=== PATIENT | male | born 1995 | race Caucasian/White ===

== ENCOUNTER 2016-10-26 18:52 | Emergency (ER) | payer BC, OTHER ==
[2016-10-26] MEDS ORDERED: methylPREDNISolone INJ 125 MG/2 ML VIAL (J2930) As Ordered ONE (19:11)
[2016-10-26] MEDS ORDERED: IPRATROPIUM 0.5MG/ALBUTEROL 2.5MG INH SOL UD 3ML (DUONEB)(J7620) As Ordered ONE (19:12)
[2016-10-26] MEDS ORDERED: MAGNESIUM SULFATE 1 GM/100 ML D5W BAG (10MG/ML) (J3475) As Ordered ONE (20:28)
[2016-10-26] MEDS ORDERED: ALBUTEROL 90 MCG/ACT 8GM HFA INHALER As Ordered ONE (21:44)
--- NOTE | 2016-10-26 21:51 | EDDOCDS ---
Nurse's Notes [facility] Name: Patrick Thacker Age: 20 yrs Sex: Male : 1995 Arrival Date: 10/26/2016 Time: 18:52 Bed I7 Private MD: Joel Easley W Diagnosis: Wheezing;Shortness of breath;Acute bronchospasm Presentation: 10/26 18:57 Presenting complaint: Patient states: woke this AM with nasal congestion and difficulty kr3 breathing. Adult Sepsis Screening: The patient does not have new or worsening altered mentation. Patient's respiratory rate is less than 22. Systolic blood pressure is greater than 100. Patient has a qSOFA score of 0- Negative Sepsis Screen. Suicide/Homicide risk assessment- the patient denies having any suicidal and/or homicidal ideations and does not present with any other emotional, behavioral or mental health complaints. Status: Patient is not a environmental services worker or dependent. Transition of care: patient was not received from another setting of care. 18:57 Acuity: GORDY Level 3 kr3 18:57 Method Of Arrival: Wheelchair kr3 Triage Assessment: 18:58 General: Appears comfortable, Behavior is cooperative. Pain: Denies pain. HIV screening kr3 NA for this visit Offered previously. Neurological: Level of Consciousness is awake, alert. EENT: Reports nasal congestion. Respiratory: Onset: The symptoms/episode began/occurred this morning, Airway is patent Respiratory effort is even, labored, Reports shortness of breath at rest on exertion cough that is non-productive. Derm: Skin is flushed. Historical: - Allergies: SULFA (SULFONAMIDES); - Home Meds: 1. Albuterol Inhl as needed (Last dose: 10/26/2016 17:30) 2. robitussin DM as needed (Last dose: 10/26/2016) - PMHx: none; - PSHx: none; - Social history: Smoking status: Patient uses tobacco products, current every day smoker. No barriers to communication noted, The patient speaks fluent Greek, Speaks appropriately for age. - Family history: No immediate family members are acutely ill. - : The pt / caregiver states he / she is not on anticoagulants. Home medication list is obtained from the patient. - Exposure Risk Screening:: None identified. Screenin:48 Screening information is obtained from the patient. Fall risk: No risks identified. ld5 Assistance ADL's: requires no assistance with activities of daily living. Abuse/DV Screen: The patient / caregiver reports he/she is: not in a situation that causes fear, pain or injury. Nutritional screening: No deficits noted. Advance Directives: Currently, there is no health care proxy. home support is adequate. Assessment: 19:09 Adult Sepsis Screening: The patient does not have new or worsening altered mentation. dsf Patient has a respiratory rate of greater than or equal to 22 (1 point). Systolic blood pressure is greater than 100. Patient has a qSOFA score of 1- Negative Sepsis Screen. General: Appears in no apparent distress, Behavior is appropriate for age. Neurological: Level of Consciousness is awake, alert. Cardiovascular: Capillary refill < 3 seconds Heart tones S1 S2 present. Respiratory: Airway is patent Respiratory effort is labored, Respiratory pattern is tachypnea Breath sounds with wheezes bilaterally. GI: Abdomen is non- distended. Derm: Skin is pale, flushed in cheeks. 20:13 General: Pt sitting up in bed. No apparent distress. Denies pain. Will continue to ld5 monitor. 21:10 General: IV infusing without difficulty, family at bedside, patient states feeling much cjh better, breathing better, feels like chest is loosening up. 21:31 General: Pt reports breathing easier at this time. States "my chest still feels a ld5 little wheezy but I am better". Provider made aware. Oxygen saturation improved after mag run. Will continue to monitor. 21:48 General: Appears in no apparent distress, Behavior is pleasant. Pain: Pain currently is ld5 1 out of 10 on a pain scale. Neurological: Level of Consciousness is awake, alert. Respiratory: Airway is patent Respiratory effort is even, unlabored. Vital Signs: 18:54 BP 134 / 68; Pulse 101; Resp 18 S; Temp 99.3(O); Pulse Ox 96% on R/A; Weight 124.74 kg gr2 (R); Height 6 ft. 1 in. (185.42 cm) (R); Pain 3/10; 20:13 BP 122 / 71; Pulse 110; Resp 20; Temp 99.7; Pulse Ox 92% on R/A; ld5 21:33 Pulse 106; Pulse Ox 95% on R/A; ld5 21:46 BP 142 / 71; Pulse 112; Resp 18; Temp 98.3; Pulse Ox 95% ; Pain 0/10; cjh 18:54 Body Mass Index 36.28 (124.74 kg, 185.42 cm) gr2 Vitals: 18:54 Log In Time: October 26, 2016 at 18:54. RN notified that patient meets Red Flag gr2 criteria. ED Course: 18:53 Patient visited by Soha Barker. gr2 18:53 Joel Easley is Private Physician. gr2 18:53 Patient moved to Waiting gr2 18:55 Patient visited by Soha Barker. gr2 18:55 Patient moved to Pre RCE gr2 18:57 Triage Initiated kr3 18:59 Patient moved to I7 / 29 kr3 19:10 Patient visited by Teetee Fitzpatrick RN. dsf 19:10 [facility] Now[facility] dt4 19:10 Elmer Kramer DO is Attending Physician. dt4 19:10 Patient visited by Monica Nowak PA-C. dt4 19:21 Inserted saline lock: 20 gauge in left antecubital area The patient tolerated the dsf procedure well. 20:11 Patient visited by Vel Aldridge PCA. kb5 20:14 Patient visited by Adela Broderick RN. ld5 20:38 [facility] Payment Agreement was scanned into [employer] and attached to record. ks16 21:08 Patient visited by Sabina Mckinley RN. [facility] 21:33 Patient visited by Adela Broderick,[place]. ld5 21:48 The patient / caregiver is instructed regarding the plan of care and ED course. Patient ld5 has correct armband on for positive identification. 21:48 Discontinued lock intact, bleeding controlled, pressure dressing applied, No ld5 redness/swelling at site. No procedures done that require assistance. 21:50 Patient visited by Adela Broderick RN. ld5 Administered Medications: 19:20 Drug: Solu-MEDROL 125 mg [Solu-Medrol 500 mg intravenous solution (125 mg)] Route: IVP; dsf Site: left antecubital; 19:22 Drug: Albuterol-Ipratropium 1 neb [ipratropium-albuterol 0.5 mg-3 mg(2.5 mg base)/3 mL jc3 nebulization soln (1 neb)] Route: Nebulizer; 19:30 Drug: Albuterol-Ipratropium 1 neb [ipratropium-albuterol 0.5 mg-3 mg(2.5 mg base)/3 mL jc3 nebulization soln (1 neb)] Route: Nebulizer; 19:41 Drug: Albuterol-Ipratropium 1 neb [ipratropium-albuterol 0.5 mg-3 mg(2.5 mg base)/3 mL jc3 nebulization soln (1 neb)] Route: Nebulizer; 20:34 Drug: Magnesium Sulfate 1 grams [magnesium sulfate 1 gram/100 mL in dextrose 5 % ld5 intravenous piggyback] {Co-Signature: [facility] (Sabina Mckinley RN).} Route: IVPB; Infused Over: 1 hrs; Site: left antecubital; 21:31 Follow up: IV Status: Completed infusion; IV Intake: 100ml ld5 21:47 Drug: Ventolin 2 puffs [Ventolin HFA 90 mcg/actuation aerosol inhaler (2 puffs)] Route: ld5 Inhalation; 21:47 Follow up: Response: Med's dispensed home ld5 Intake: 21:31 IV: 100.00ml; Total: 100.00ml. ld5 RT: 19:30 Initial Med Neb Given as ordered. Respiratory: Breath sounds are coarse bilaterally. jc3 Breath sounds with wheezes bilaterally. at expiration at inspiration. 19:41 Subsequent Med Neb Given as ordered. Respiratory: Breath sounds with wheezes jc3 bilaterally. at expiration. Order Results: There are currently no results for this order. Outcome: 21:38 Discharge ordered by Provider. dt4 21:48 Discharge Assessment: Patient awake, alert and oriented x 3. No cognitive and/or ld5 functional deficits noted. Patient verbalized understanding of disposition instructions. patient administered narcotics - no. The following High Risk Discharge criteria are identified: None. Discharged to home ambulatory, with parent. Condition: improved. Discharge instructions given to patient, parents Instructed on discharge instructions, follow up and referral plans. medication usage, Demonstrated understanding of instructions, medications, Pt was receptive of discharge instructions/ teaching. Prescriptions given X 3. No special radiology studies were completed. Property :Personal belongings accompany Pt. 21:50 Patient left the ED. ld5 Signatures: Allegra Estrada,RN RN kr3 Vel Aldridge, WIRE WINDER WIRE WINDER kb5 Khurram Lovelace jc3 Adela BroderickRN RN dimitri5 Teetee Fitzpatrick,RN RN Sabina Mcmullen RN RN [facility] Soha Barker gr2 Monica Nowak PA-C PAHaley dt4 Sherry Fuchs, Reg Reg ks16 Sabina Mckinley RN [facility] MTDD
--- NOTE | 2016-10-26 21:51 | EDDOCDS ---
Physician Documentation [facility] Name: Patrick Thacker Age: 20 yrs Sex: Male : 1995 Arrival Date: 10/26/2016 Time: 18:52 Bed I7 Private MD: Joel Easley W Disposition: 10/26/16 21:38 Discharged to Home/Self Care. Impression: Wheezing, Shortness of breath, Acute bronchospasm. - Condition is Stable. - Discharge Instructions: Shortness of Breath, Asthma, Acute Bronchospasm. - Prescriptions for Prednisone 20 mg Oral Tablet - take 3 tablets by ORAL route once daily for 4 days; 12 tablet. Albuterol Sulfate 2.5 mg /3 mL (0.083 %) Inhalation Solution for Nebulization - inhale 1 unit by NEBULIZATION route 3-4 times daily As needed; 1 box. Zithromax Z- [place] 250 mg Oral Tablet - take 1 tablet by ORAL route as directed for 5 days Day 1- take two tablets once. Day 2, 3, 4 , 5 take one tablet once daily.; 6 tablet. - Medication Reconciliation, Local Pharmacy Hours form. - Follow up: Emergency Department; When: As needed; Reason: Worsening of conditions. Follow up: Private Physician; When: 2 - 3 days; Reason: Wound/Symptom Recheck, Recheck today's complaints, Continuance of care. - Problem is new. - Symptoms have improved. - Notes: YOUR CHEST XRAY WILL NOT BE OFFICIALLY READ BY A RADIOLOGIST UNTIL TOMORROW. IF THEY NOTICE ANY ABNORMALITIES, YOU WILL BE NOTIFIED. TAKE THE MEDICATIONS PRESCRIBED UNTIL THEY ARE GONE. THE ALBUTEROL IS AN " NEEDED" MEDICATION AND YOU CAN USE THIS DIRECTED, YOU NEED TO. ANY WORSENING SYMPTOMS, PLEASE RETURN TO THE ER. Historical: - Allergies: SULFA (SULFONAMIDES); - Home Meds: 1. Albuterol Inhl as needed (Last dose: 10/26/2016 17:30) 2. robitussin DM as needed (Last dose: 10/26/2016) - PMHx: none; - PSHx: none; - Social history: Smoking status: Patient uses tobacco products, current every day smoker. No barriers to communication noted, The patient speaks fluent Tongan, Speaks appropriately for age. - Family history: No immediate family members are acutely ill. - : The pt / caregiver states he / she is not on anticoagulants. Home medication list is obtained from the patient. - Exposure Risk Screening:: None identified. Vital Signs: 10/26 18:54 BP 134 / 68; Pulse 101; Resp 18 S; Temp 99.3(O); Pulse Ox 96% on R/A; Weight 124.74 kg gr2 / 275 lbs (R); Height 6 ft. 1 in. (185.42 cm) (R); Pain 3/10; 20:13 BP 122 / 71; Pulse 110; Resp 20; Temp 99.7; Pulse Ox 92% on R/A; ld5 21:33 Pulse 106; Pulse Ox 95% on R/A; ld5 21:46 BP 142 / 71; Pulse 112; Resp 18; Temp 98.3; Pulse Ox 95% ; Pain 0/10; cjh 18:54 Body Mass Index 36.28 (124.74 kg, 185.42 cm) gr2 MDM: 19:11 IV Saline Lock ordered. dt4 19:11 Solu-MEDROL 125 mg IVP once ordered. dt4 19:11 Albuterol-Ipratropium 1 neb Nebulizer every 20 minutes x3 ordered. dt4 19:43 Chest, 2 View (pa\\E\\lat) Ordered. EDMS 20:18 Magnesium Sulfate 1 grams IVPB once over 1 hrs; administer over at least 1 hour ordered.dt4 20:37 Financial registration complete. [email or web address] 20:38 [facility] Payment Agreement was scanned into [employer] and attached to record. ks16 21:44 Ventolin Inhaler 2 puffs Inhalation once ordered. dt4 Administered Medications: 19:20 Drug: Solu-MEDROL 125 mg [Solu-Medrol 500 mg intravenous solution (125 mg)] Route: IVP; dsf Site: left antecubital; 19:22 Drug: Albuterol-Ipratropium 1 neb [ipratropium-albuterol 0.5 mg-3 mg(2.5 mg base)/3 mL jc3 nebulization soln (1 neb)] Route: Nebulizer; 19:30 Drug: Albuterol-Ipratropium 1 neb [ipratropium-albuterol 0.5 mg-3 mg(2.5 mg base)/3 mL jc3 nebulization soln (1 neb)] Route: Nebulizer; 19:41 Drug: Albuterol-Ipratropium 1 neb [ipratropium-albuterol 0.5 mg-3 mg(2.5 mg base)/3 mL jc3 nebulization soln (1 neb)] Route: Nebulizer; 20:34 Drug: Magnesium Sulfate 1 grams [magnesium sulfate 1 gram/100 mL in dextrose 5 % ld5 intravenous piggyback] {Co-Signature: [facility] (Sabina Mckinley RN).} Route: IVPB; Infused Over: 1 hrs; Site: left antecubital; 21:31 Follow up: IV Status: Completed infusion; IV Intake: 100ml ld5 21:47 Drug: Ventolin 2 puffs [Ventolin HFA 90 mcg/actuation aerosol inhaler (2 puffs)] Route: ld5 Inhalation; 21:47 Follow up: Response: Med's dispensed home ld5 Signatures: Dispatcher [employer] EDAllegra RodriguesRN RN kr3 Adela Broderick RN RN ld5 Monica Nowak PA-C PAHaley dt4 Sherry Fuchs, Reg Reg ks16 Khurram Lovelace jc3 Teetee Fitzpatrick RN dsf Sabina Mckinley RN [facility] The chart was reviewed and I authenticate all verbal orders and agree with the evaluation and treatment provided.Attachments: 20:38 [facility] Payment Agreement [email or web address] MTDD
--- NOTE | 2016-10-27 09:08 | REP ---
PA and lateral chest, 10/26/2016: Indication: Shortness of breath. Comparison: Report only from PA and lateral chest 09/24/2016 performed at [facility] FINDINGS: The mediastinum and cardiac silhouette are within normal limits. The lung hoffman are clear without acute consolidation, effusion or pneumothorax. Skeletal structures are normal for age. IMPRESSION: No acute cardiopulmonary process. Signed by Juliette Cummins MD 10/28/2016 10:52 A
--- NOTE | 2016-10-28 22:51 | EDDOCDS ---
Physician Documentation [facility] Name: Patrick Thacker Age: 20 yrs Sex: Male : 1995 Arrival Date: 10/26/2016 Time: 18:52 Bed I7 Private MD: Joel Easley W Disposition: 10/26/16 21:38 Discharged to Home/Self Care. Impression: Wheezing, Shortness of breath, Acute bronchospasm. - Condition is Stable. - Discharge Instructions: Shortness of Breath, Asthma, Acute Bronchospasm. - Prescriptions for Prednisone 20 mg Oral Tablet - take 3 tablets by ORAL route once daily for 4 days; 12 tablet. Albuterol Sulfate 2.5 mg /3 mL (0.083 %) Inhalation Solution for Nebulization - inhale 1 unit by NEBULIZATION route 3-4 times daily As needed; 1 box. Zithromax Z- [place] 250 mg Oral Tablet - take 1 tablet by ORAL route as directed for 5 days Day 1- take two tablets once. Day 2, 3, 4 , 5 take one tablet once daily.; 6 tablet. - Medication Reconciliation, Local Pharmacy Hours form. - Follow up: Emergency Department; When: As needed; Reason: Worsening of conditions. Follow up: Private Physician; When: 2 - 3 days; Reason: Wound/Symptom Recheck, Recheck today's complaints, Continuance of care. - Problem is new. - Symptoms have improved. - Notes: YOUR CHEST XRAY WILL NOT BE OFFICIALLY READ BY A RADIOLOGIST UNTIL TOMORROW. IF THEY NOTICE ANY ABNORMALITIES, YOU WILL BE NOTIFIED. TAKE THE MEDICATIONS PRESCRIBED UNTIL THEY ARE GONE. THE ALBUTEROL IS AN " NEEDED" MEDICATION AND YOU CAN USE THIS DIRECTED, YOU NEED TO. ANY WORSENING SYMPTOMS, PLEASE RETURN TO THE ER. Historical: - Allergies: SULFA (SULFONAMIDES); - Home Meds: 1. Albuterol Inhl as needed (Last dose: 10/26/2016 17:30) 2. robitussin DM as needed (Last dose: 10/26/2016) - PMHx: none; - PSHx: none; - Social history: Smoking status: Patient uses tobacco products, current every day smoker. No barriers to communication noted, The patient speaks fluent Armenian, Speaks appropriately for age. - Family history: No immediate family members are acutely ill. - : The pt / caregiver states he / she is not on anticoagulants. Home medication list is obtained from the patient. - Exposure Risk Screening:: None identified. Vital Signs: 10/26 18:54 BP 134 / 68; Pulse 101; Resp 18 S; Temp 99.3(O); Pulse Ox 96% on R/A; Weight 124.74 kg gr2 / 275 lbs (R); Height 6 ft. 1 in. (185.42 cm) (R); Pain 3/10; 20:13 BP 122 / 71; Pulse 110; Resp 20; Temp 99.7; Pulse Ox 92% on R/A; ld5 21:33 Pulse 106; Pulse Ox 95% on R/A; ld5 21:46 BP 142 / 71; Pulse 112; Resp 18; Temp 98.3; Pulse Ox 95% ; Pain 0/10; cjh 18:54 Body Mass Index 36.28 (124.74 kg, 185.42 cm) gr2 MDM: 19:11 IV Saline Lock ordered. dt4 19:11 Solu-MEDROL 125 mg IVP once ordered. dt4 19:11 Albuterol-Ipratropium 1 neb Nebulizer every 20 minutes x3 ordered. dt4 19:43 Chest, 2 View (pa\\E\\lat) Ordered. EDMS 20:18 Magnesium Sulfate 1 grams IVPB once over 1 hrs; administer over at least 1 hour ordered.dt4 20:37 Financial registration complete. [email or web address] 20:38 [facility] Payment Agreement was scanned into [employer] and attached to record. ks16 21:44 Ventolin Inhaler 2 puffs Inhalation once ordered. dt4 10/27 18:23 T-Sheet-- Draft Copy was scanned into [employer] and attached to record. klr Administered Medications: 10/26 19:20 Drug: Solu-MEDROL 125 mg [Solu-Medrol 500 mg intravenous solution (125 mg)] Route: IVP; dsf Site: left antecubital; 19:22 Drug: Albuterol-Ipratropium 1 neb [ipratropium-albuterol 0.5 mg-3 mg(2.5 mg base)/3 mL jc3 nebulization soln (1 neb)] Route: Nebulizer; 19:30 Drug: Albuterol-Ipratropium 1 neb [ipratropium-albuterol 0.5 mg-3 mg(2.5 mg base)/3 mL jc3 nebulization soln (1 neb)] Route: Nebulizer; 19:41 Drug: Albuterol-Ipratropium 1 neb [ipratropium-albuterol 0.5 mg-3 mg(2.5 mg base)/3 mL jc3 nebulization soln (1 neb)] Route: Nebulizer; 20:34 Drug: Magnesium Sulfate 1 grams [magnesium sulfate 1 gram/100 mL in dextrose 5 % ld5 intravenous piggyback] {Co-Signature: [facility] (Sabina Mckinley RN).} Route: IVPB; Infused Over: 1 hrs; Site: left antecubital; 21:31 Follow up: IV Status: Completed infusion; IV Intake: 100ml ld5 21:47 Drug: Ventolin 2 puffs [Ventolin HFA 90 mcg/actuation aerosol inhaler (2 puffs)] Route: ld5 Inhalation; 21:47 Follow up: Response: Med's dispensed home ld5 Signatures: Dispatcher [employer] EDMS Allegra Estrada,RN RN kr3 Adela Broderick RN RN ld5 Monica Nowak PA-C PAHaley dt4 Sherry Fuchs, Reg Reg ks16 Antionette Fernandez Joseph jc3 Teetee Fitzpatrick RN f Sabina Mckinley RN [facility] The chart was reviewed and I authenticate all verbal orders and agree with the evaluation and treatment provided.Attachments: 20:38 [facility] Payment Agreement [email or web address] 10/27 18:23 T-Sheet-- Draft Copy klr Chart Complete MTDD
--- NOTE | 2016-10-28 22:51 | EDDOCDS ---
Physician Documentation [facility] Name: Patrick Thacker Age: 20 yrs Sex: Male : 1995 Arrival Date: 10/26/2016 Time: 18:52 Bed I7 Private MD: Joel Easley W Disposition: 10/26/16 21:38 Discharged to Home/Self Care. Impression: Wheezing, Shortness of breath, Acute bronchospasm. - Condition is Stable. - Discharge Instructions: Shortness of Breath, Asthma, Acute Bronchospasm. - Prescriptions for Prednisone 20 mg Oral Tablet - take 3 tablets by ORAL route once daily for 4 days; 12 tablet. Albuterol Sulfate 2.5 mg /3 mL (0.083 %) Inhalation Solution for Nebulization - inhale 1 unit by NEBULIZATION route 3-4 times daily As needed; 1 box. Zithromax Z- [place] 250 mg Oral Tablet - take 1 tablet by ORAL route as directed for 5 days Day 1- take two tablets once. Day 2, 3, 4 , 5 take one tablet once daily.; 6 tablet. - Medication Reconciliation, Local Pharmacy Hours form. - Follow up: Emergency Department; When: As needed; Reason: Worsening of conditions. Follow up: Private Physician; When: 2 - 3 days; Reason: Wound/Symptom Recheck, Recheck today's complaints, Continuance of care. - Problem is new. - Symptoms have improved. - Notes: YOUR CHEST XRAY WILL NOT BE OFFICIALLY READ BY A RADIOLOGIST UNTIL TOMORROW. IF THEY NOTICE ANY ABNORMALITIES, YOU WILL BE NOTIFIED. TAKE THE MEDICATIONS PRESCRIBED UNTIL THEY ARE GONE. THE ALBUTEROL IS AN " NEEDED" MEDICATION AND YOU CAN USE THIS DIRECTED, YOU NEED TO. ANY WORSENING SYMPTOMS, PLEASE RETURN TO THE ER. Historical: - Allergies: SULFA (SULFONAMIDES); - Home Meds: 1. Albuterol Inhl as needed (Last dose: 10/26/2016 17:30) 2. robitussin DM as needed (Last dose: 10/26/2016) - PMHx: none; - PSHx: none; - Social history: Smoking status: Patient uses tobacco products, current every day smoker. No barriers to communication noted, The patient speaks fluent Vietnamese, Speaks appropriately for age. - Family history: No immediate family members are acutely ill. - : The pt / caregiver states he / she is not on anticoagulants. Home medication list is obtained from the patient. - Exposure Risk Screening:: None identified. Vital Signs: 10/26 18:54 BP 134 / 68; Pulse 101; Resp 18 S; Temp 99.3(O); Pulse Ox 96% on R/A; Weight 124.74 kg gr2 / 275 lbs (R); Height 6 ft. 1 in. (185.42 cm) (R); Pain 3/10; 20:13 BP 122 / 71; Pulse 110; Resp 20; Temp 99.7; Pulse Ox 92% on R/A; ld5 21:33 Pulse 106; Pulse Ox 95% on R/A; ld5 21:46 BP 142 / 71; Pulse 112; Resp 18; Temp 98.3; Pulse Ox 95% ; Pain 0/10; cjh 18:54 Body Mass Index 36.28 (124.74 kg, 185.42 cm) gr2 MDM: 19:11 IV Saline Lock ordered. dt4 19:11 Solu-MEDROL 125 mg IVP once ordered. dt4 19:11 Albuterol-Ipratropium 1 neb Nebulizer every 20 minutes x3 ordered. dt4 19:43 Chest, 2 View (pa\\E\\lat) Ordered. EDMS 20:18 Magnesium Sulfate 1 grams IVPB once over 1 hrs; administer over at least 1 hour ordered.dt4 20:37 Financial registration complete. [email or web address] 20:38 [facility] Payment Agreement was scanned into [employer] and attached to record. ks16 21:44 Ventolin Inhaler 2 puffs Inhalation once ordered. dt4 10/27 18:23 T-Sheet-- Draft Copy was scanned into [employer] and attached to record. klr Administered Medications: 10/26 19:20 Drug: Solu-MEDROL 125 mg [Solu-Medrol 500 mg intravenous solution (125 mg)] Route: IVP; dsf Site: left antecubital; 19:22 Drug: Albuterol-Ipratropium 1 neb [ipratropium-albuterol 0.5 mg-3 mg(2.5 mg base)/3 mL jc3 nebulization soln (1 neb)] Route: Nebulizer; 19:30 Drug: Albuterol-Ipratropium 1 neb [ipratropium-albuterol 0.5 mg-3 mg(2.5 mg base)/3 mL jc3 nebulization soln (1 neb)] Route: Nebulizer; 19:41 Drug: Albuterol-Ipratropium 1 neb [ipratropium-albuterol 0.5 mg-3 mg(2.5 mg base)/3 mL jc3 nebulization soln (1 neb)] Route: Nebulizer; 20:34 Drug: Magnesium Sulfate 1 grams [magnesium sulfate 1 gram/100 mL in dextrose 5 % ld5 intravenous piggyback] {Co-Signature: [facility] (Sabina Mckinley RN).} Route: IVPB; Infused Over: 1 hrs; Site: left antecubital; 21:31 Follow up: IV Status: Completed infusion; IV Intake: 100ml ld5 21:47 Drug: Ventolin 2 puffs [Ventolin HFA 90 mcg/actuation aerosol inhaler (2 puffs)] Route: ld5 Inhalation; 21:47 Follow up: Response: Med's dispensed home ld5 Signatures: Dispatcher [employer] EDMS Allegra Estrada,RN RN kr3 Adela Broderick RN RN ld5 Monica Nowak PA-C PAHaley dt4 Sherry Fuchs, Reg Reg ks16 Antionette Fernandez Joseph jc3 Teetee Fitzpatrick RN f Sabina Mckinley RN [facility] The chart was reviewed and I authenticate all verbal orders and agree with the evaluation and treatment provided.Attachments: 20:38 [facility] Payment Agreement [email or web address] 10/27 18:23 T-Sheet-- Draft Copy klr Chart Complete MTDD
--- NOTE | 2016-10-28 22:52 | EDDOCDS ---
Nurse's Notes [facility] Name: Patrick Thacker Age: 20 yrs Sex: Male : 1995 Arrival Date: 10/26/2016 Time: 18:52 Bed I7 Private MD: Joel Easley W Diagnosis: Wheezing;Shortness of breath;Acute bronchospasm Presentation: 10/26 18:57 Presenting complaint: Patient states: woke this AM with nasal congestion and difficulty kr3 breathing. Adult Sepsis Screening: The patient does not have new or worsening altered mentation. Patient's respiratory rate is less than 22. Systolic blood pressure is greater than 100. Patient has a qSOFA score of 0- Negative Sepsis Screen. Suicide/Homicide risk assessment- the patient denies having any suicidal and/or homicidal ideations and does not present with any other emotional, behavioral or mental health complaints. 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 Transition of care: patient was not received from another setting of care. 18:57 Acuity: GORDY Level 3 kr3 18:57 Method Of Arrival: Wheelchair kr3 Triage Assessment: 18:58 General: Appears comfortable, Behavior is cooperative. Pain: Denies pain. HIV screening kr3 NA for this visit Offered previously. Neurological: Level of Consciousness is awake, alert. EENT: Reports nasal congestion. Respiratory: Onset: The symptoms/episode began/occurred this morning, Airway is patent Respiratory effort is even, labored, Reports shortness of breath at rest on exertion cough that is non-productive. Derm: Skin is flushed. Historical: - Allergies: SULFA (SULFONAMIDES); - Home Meds: 1. Albuterol Inhl as needed (Last dose: 10/26/2016 17:30) 2. robitussin DM as needed (Last dose: 10/26/2016) - PMHx: none; - PSHx: none; - Social history: Smoking status: Patient uses tobacco products, current every day smoker. No barriers to communication noted, The patient speaks fluent Divehi, Speaks appropriately for age. - Family history: No immediate family members are acutely ill. - : The pt / caregiver states he / she is not on anticoagulants. Home medication list is obtained from the patient. - Exposure Risk Screening:: None identified. Screenin:48 Screening information is obtained from the patient. Fall risk: No risks identified. ld5 Assistance ADL's: requires no assistance with activities of daily living. Abuse/DV Screen: The patient / caregiver reports he/she is: not in a situation that causes fear, pain or injury. Nutritional screening: No deficits noted. Advance Directives: Currently, there is no health care proxy. home support is adequate. Assessment: 19:09 Adult Sepsis Screening: The patient does not have new or worsening altered mentation. dsf Patient has a respiratory rate of greater than or equal to 22 (1 point). Systolic blood pressure is greater than 100. Patient has a qSOFA score of 1- Negative Sepsis Screen. General: Appears in no apparent distress, Behavior is appropriate for age. Neurological: Level of Consciousness is awake, alert. Cardiovascular: Capillary refill < 3 seconds Heart tones S1 S2 present. Respiratory: Airway is patent Respiratory effort is labored, Respiratory pattern is tachypnea Breath sounds with wheezes bilaterally. GI: Abdomen is non- distended. Derm: Skin is pale, flushed in cheeks. 20:13 General: Pt sitting up in bed. No apparent distress. Denies pain. Will continue to ld5 monitor. 21:10 General: IV infusing without difficulty, family at bedside, patient states feeling much cjh better, breathing better, feels like chest is loosening up. 21:31 General: Pt reports breathing easier at this time. States "my chest still feels a ld5 little wheezy but I am better". Provider made aware. Oxygen saturation improved after mag run. Will continue to monitor. 21:48 General: Appears in no apparent distress, Behavior is pleasant. Pain: Pain currently is ld5 1 out of 10 on a pain scale. Neurological: Level of Consciousness is awake, alert. Respiratory: Airway is patent Respiratory effort is even, unlabored. Vital Signs: 18:54 BP 134 / 68; Pulse 101; Resp 18 S; Temp 99.3(O); Pulse Ox 96% on R/A; Weight 124.74 kg gr2 (R); Height 6 ft. 1 in. (185.42 cm) (R); Pain 3/10; 20:13 BP 122 / 71; Pulse 110; Resp 20; Temp 99.7; Pulse Ox 92% on R/A; ld5 21:33 Pulse 106; Pulse Ox 95% on R/A; ld5 21:46 BP 142 / 71; Pulse 112; Resp 18; Temp 98.3; Pulse Ox 95% ; Pain 0/10; cjh 18:54 Body Mass Index 36.28 (124.74 kg, 185.42 cm) gr2 Vitals: 18:54 Log In Time: October 26, 2016 at 18:54. RN notified that patient meets Red Flag gr2 criteria. ED Course: 18:53 Patient visited by Soha Barker. gr2 18:53 Joel Easley is Private Physician. gr2 18:53 Patient moved to Waiting gr2 18:55 Patient visited by Soha Barker. gr2 18:55 Patient moved to Pre RCE gr2 18:57 Triage Initiated kr3 18:59 Patient moved to I7 / 29 kr3 19:10 Patient visited by Teetee Fitzpatrick RN. dsf 19:10 Monica Nowak PA-C is PHCP. dt4 19:10 Elmer Kramer DO is Attending Physician. dt4 19:10 Patient visited by Monica Nowak PA-C. dt4 19:21 Inserted saline lock: 20 gauge in left antecubital area The patient tolerated the dsf procedure well. 20:11 Patient visited by Vel Aldridge PCA. kb5 20:14 Patient visited by Adlea Broderick RN. ld5 20:38 [facility] Payment Agreement was scanned into [employer] and attached to record. ks16 21:08 Patient visited by Sabina Mckinley RN. [facility] 21:33 Patient visited by Adela Broderick,TEODORO. ld5 21:48 The patient / caregiver is instructed regarding the plan of care and ED course. Patient ld5 has correct armband on for positive identification. 21:48 Discontinued lock intact, bleeding controlled, pressure dressing applied, No ld5 redness/swelling at site. No procedures done that require assistance. 21:50 Patient visited by Adela Broderick RN. ld5 10/27 09:13 Chest, 2 View (pa\\E\\lat) Returned. EDMS 18:23 T-Sheet-- Draft Copy was scanned into [employer] and attached to record. klr Administered Medications: 10/26 19:20 Drug: Solu-MEDROL 125 mg [Solu-Medrol 500 mg intravenous solution (125 mg)] Route: IVP; dsf Site: left antecubital; 19:22 Drug: Albuterol-Ipratropium 1 neb [ipratropium-albuterol 0.5 mg-3 mg(2.5 mg base)/3 mL jc3 nebulization soln (1 neb)] Route: Nebulizer; 19:30 Drug: Albuterol-Ipratropium 1 neb [ipratropium-albuterol 0.5 mg-3 mg(2.5 mg base)/3 mL jc3 nebulization soln (1 neb)] Route: Nebulizer; 19:41 Drug: Albuterol-Ipratropium 1 neb [ipratropium-albuterol 0.5 mg-3 mg(2.5 mg base)/3 mL jc3 nebulization soln (1 neb)] Route: Nebulizer; 20:34 Drug: Magnesium Sulfate 1 grams [magnesium sulfate 1 gram/100 mL in dextrose 5 % ld5 intravenous piggyback] {Co-Signature: [facility] (Sabina Mckinley RN).} Route: IVPB; Infused Over: 1 hrs; Site: left antecubital; 21:31 Follow up: IV Status: Completed infusion; IV Intake: 100ml ld5 21:47 Drug: Ventolin 2 puffs [Ventolin HFA 90 mcg/actuation aerosol inhaler (2 puffs)] Route: ld5 Inhalation; 21:47 Follow up: Response: Med's dispensed home ld5 Intake: 21:31 IV: 100.00ml; Total: 100.00ml. ld5 RT: 19:30 Initial Med Neb Given as ordered. Respiratory: Breath sounds are coarse bilaterally. jc3 Breath sounds with wheezes bilaterally. at expiration at inspiration. 19:41 Subsequent Med Neb Given as ordered. Respiratory: Breath sounds with wheezes jc3 bilaterally. at expiration. Order Results: Radiology Order: Chest, 2 View (pa\\E\\lat) Test: Chest, 2 View (pa\\E\\lat) REASON FOR EXAMINATION: Shortness of Breath; PA and lateral chest, 10/26/2016:; ; Indication: Shortness of breath.; ; Comparison: Report only from PA and lateral chest 09/24/2016 performed at [facility]; ; FINDINGS: The mediastinum and cardiac silhouette are within normal limits. The; lung hoffman are clear without acute consolidation, effusion or pneumothorax.; Skeletal structures are normal for age.; ; IMPRESSION:; ; No acute cardiopulmonary process.; ; ; Signed by; Juliette Cummins MD 10/28/2016 10:52 A; Outcome: 21:38 Discharge ordered by Provider. dt4 21:48 Discharge Assessment: Patient awake, alert and oriented x 3. No cognitive and/or ld5 functional deficits noted. Patient verbalized understanding of disposition instructions. patient administered narcotics - no. The following High Risk Discharge criteria are identified: None. Discharged to home ambulatory, with parent. Condition: improved. Discharge instructions given to patient, parents Instructed on discharge instructions, follow up and referral plans. medication usage, Demonstrated understanding of instructions, medications, Pt was receptive of discharge instructions/ teaching. Prescriptions given X 3. No special radiology studies were completed. Property :Personal belongings accompany Pt. 21:50 Patient left the ED. ld5 Signatures: Dispatcher [employer] EDMS Allegra Estrada,RN RN kr3 Vel Aldridge, BATCH OPERATOR BATCH OPERATOR kb5 Khurram Lovelace jc3 Adela Broderick RN RN ld5 Teetee FitzpatrickRN RN Sabina McmullenRN RN [facility] Soha Barker gr2 Monica Nowak PA-C PA-C dt4 Sherry Fuchs, Reg Reg ks16 Antionette Fernandez RN [facility] Chart Complete MTDD
== END 2016-10-26 21:50 | disposition home or self-care (01) ==
LOC: M ED 18:52
DX: J98.01 Acute bronchospasm (principal); Z88.2 Allergy status to sulfonamides; F17.210 Nicotine dependence, cigarettes, uncomplicated
CPT/HCPCS: 71020; 94640; 96365; 96375; 99284; J2930; J3475

== ENCOUNTER 2018-08-01 04:26 | Emergency (ER) | payer BC, OTHER ==
[2018-08-01] MEDS: ALBUTEROL SULFATE 2.5 MG/0.5 ML INH NEB SOLN NEB (05:32)
[2018-08-01] MEDS: dexameTHASONE 20 MG/5 ML VIAL (J1100) IV (05:56)
== END 2018-08-01 07:19 | disposition home or self-care (01) ==
LOC: M ED 04:26
DX: J45.909 Unspecified asthma, uncomplicated (principal); F17.200 Nicotine dependence, unspecified, uncomplicated; Z88.1 Allergy status to other antibiotic agents; Z88.2 Allergy status to sulfonamides
CPT/HCPCS: J1100

== ENCOUNTER 2021-02-06 20:11 | Emergency (ER) | payer BC, OTHER ==
[~2021-02-06] VITALS: Ht 185.4 cm; Wt 118.2 kg
[~2021-02-06 20:11] MED LIST: ALBU83IN; PRED20TA PO
[2021-02-06] MEDS ORDERED: PROAAER10 INH (20:22)
[2021-02-06 22:22] LABS: BASO # 0.1 10^3/uL (0.0-0.2); BASO % 0.4 % (0.0-1.0); EOS # 0.4 10^3/uL (0.0-0.5); EOS % 2.7 % (0.0-3.0); HEMOGLOBIN 16.8 g/dl (13.5-17.5); LYMPH # 2.3 10^3/uL (1.5-5.0); LYMPH % 17.1 % (24.0-44.0); MEAN CORPUSCULAR HEMOGLOBIN 30.3 pg (27.0-33.0); MEAN CORPUSCULAR HGB CONC 33.6 g/dl (32.0-36.5); MEAN CORPUSCULAR VOLUME 90.1 fl (80.0-96.0); MONO % 7.1 % (2.0-8.0); NEUTROPHILS # 9.9 10^3/uL (1.5-8.5); NEUTROPHILS % 72.3 % (36.0-66.0); PLATELET COUNT, AUTOMATED 270 10^3/uL (150-450); RED BLOOD COUNT 5.55 10^6/uL (4.30-6.10); WHITE BLOOD COUNT 13.6 10^3/uL (4.0-10.0)
[2021-02-06 23:20] LABS: ALBUMIN 4.7 GM/DL (3.2-5.2); ALT/SGPT 29 U/L (12-78); BILIRUBIN,DIRECT 0.3 MG/DL (0.0-0.2); BILIRUBIN,TOTAL 2.3 MG/DL (0.2-1.0); BLOOD UREA NITROGEN 10 MG/DL (7-18); CALCIUM LEVEL 10.2 MG/DL (8.5-10.1); CARBON DIOXIDE LEVEL 25 MEQ/L (21-32); CHLORIDE LEVEL 104 MEQ/L (98-107); CK-MB VALUE MASS < 1.0 NG/ML (<3.6); CPK CREATINE PHOSPHOKINASE 69 U/L (39-308); CREATININE FOR GFR 0.76 MG/DL (0.70-1.30); FREE T4 1.27 NG/DL (0.76-1.46); GLOMERULAR FILTRATION RATE > 60.0 (>60); GLUCOSE, FASTING 77 MG/DL (70-100); MB/CK RELATIVE INDEX 1.45 (< OR =4); SODIUM LEVEL 138 MEQ/L (136-145); THYROID STIMULATING HORMONE 0.922 uIU/ML (0.358-3.740); TOTAL PROTEIN 8.1 GM/DL (6.4-8.2); TROPONIN I < 0.02 NG/ML (< 0.10)
--- NOTE | 2021-02-06 23:23 | REPVR ---
PROCEDURE INFORMATION: Exam: XR Chest Exam date and time: 02/06/2021 10:43 PM Age: 25 years old Clinical indication: Chest pain; Type not specified TECHNIQUE: Imaging protocol: XR of the chest. Views: 2 views. COMPARISON: CR Chest, 2 view PA, Lat 08/01/2018 5:03 AM FINDINGS: Lungs: The lungs appear clear. Pleural spaces: There is no evidence of pneumothorax or pleural effusion. Heart/Mediastinum: The heart is normal in size. Bones/joints: There is no evidence of bony abnormality. IMPRESSION: Clear appearing lungs. Electronically signed by: Rodrigo Sawyer On 02/06/2021 23:23:07 PM
[2021-02-06] MEDS ORDERED: hydrOXYzine 25 MG TAB PO ONE (23:50)
[2021-02-07] VITALS: BP 131/68
[2021-02-07] MEDS ORDERED: HYDR-3363 PO
--- NOTE | 2021-02-07 20:20 | ECGEPIP ---
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
== END 2021-02-07 00:14 | disposition home or self-care (01) ==
LOC: M ED 20:11
DX: F41.0 Panic disorder [episodic paroxysmal anxiety] (principal); J45.909 Unspecified asthma, uncomplicated; F17.200 Nicotine dependence, unspecified, uncomplicated; Z88.2 Allergy status to sulfonamides; Z79.51 Long term (current) use of inhaled steroids

== ENCOUNTER 2022-09-01 08:25 | Observation (INO) | payer BC, OTHER, SELFPAY ==
[~2022-09-01] VITALS: Ht 185.4 cm; Wt 105.6 kg
[~2022-09-01 08:25] MED LIST changes: +ALBU2.5V10; -ALBU83IN; +HYDR-3363 PO; +PROAAER10 INH
[2022-09-01] MEDS ORDERED: BENA25CA4 PO (08:35)
[2022-09-01] MEDS ORDERED: methylPREDNISolone 125MG 2ML VIAL IV ONE (08:40)
[2022-09-01] MEDS: IPRATROPIUM 0.5MG/ALBUTEROL 2.5MG INH SOL UD 3ML (DUONEB) NEB PRN ×2 (08:59→09:02)
[2022-09-01 09:12] LABS: BASO # 0.1 10^3/uL (0.0-0.2); BASO % 0.7 % (0.0-1.0); EOS # 0.5 10^3/uL (0.0-0.5); EOS % 4.1 % (0.0-3.0); HEMATOCRIT 49.6 % (42.0-52.0); HEMOGLOBIN 16.5 g/dl (13.5-17.5); LYMPH # 1.6 10^3/uL (1.5-5.0); LYMPH % 12.9 % (24.0-44.0); MEAN CORPUSCULAR HEMOGLOBIN 30.6 pg (27.0-33.0); MEAN CORPUSCULAR HGB CONC 33.3 g/dl (32.0-36.5); MEAN CORPUSCULAR VOLUME 91.9 fl (80.0-96.0); MONO # 0.6 10^3/uL (0.0-0.8); MONO % 5.3 % (2.0-8.0); NEUTROPHILS # 9.3 10^3/uL (1.5-8.5); NEUTROPHILS % 76.6 % (36.0-66.0); PLATELET COUNT, AUTOMATED 264 10^3/uL (150-450); WHITE BLOOD COUNT 12.1 10^3/uL (4.0-10.0)
[2022-09-01] MEDS ORDERED: HOME MED LIST COMPLETE! XX SCH (09:15)
[2022-09-01 09:52] LABS: ALBUMIN 4.5 G/DL (3.2-5.2); ALT/SGPT 32 U/L (7.0-40); BILIRUBIN,DIRECT 0.4 MG/DL (<0.4); BILIRUBIN,TOTAL 1.4 MG/DL (0.3-1.2); BLOOD UREA NITROGEN 11 MG/DL (9-23); CALCIUM LEVEL 9.4 MG/DL (8.5-10.1); CARBON DIOXIDE LEVEL 25 MMOL/L (20-31); CHLORIDE LEVEL 105 MMOL/L (98-107); CK-MB VALUE MASS 1.3 NG/ML (<3.6); CPK CREATINE PHOSPHOKINASE 108 U/L (46-171); CREATININE FOR GFR 0.62 MG/DL (0.70-1.30); GLOMERULAR FILTRATION RATE > 60.0 (>60); GLUCOSE, FASTING 105 MG/DL (60-100); POTASSIUM SERUM 4.2 MMOL/L (3.5-5.1); SODIUM LEVEL 142 MMOL/L (136-145); TOTAL PROTEIN 7.7 G/DL (5.7-8.2)
[2022-09-01] MEDS: MAG SULF 1GM/100ML (MAG RUN) 1 GM in IV 1 EA IV SCH ×2 (10:22→10:38)
[2022-09-01 11:07] LABS: CK-MB VALUE MASS 1.3 NG/ML (<3.6); MB/CK RELATIVE INDEX 0.99 (< OR =4)
[2022-09-01 11:30] VITALS: O2SAT 99
[2022-09-01] MEDS ORDERED: ALBUTEROL 90 MCG/ACT 8GM HFA INHALER INH PRN (11:40)
[2022-09-01] MEDS ORDERED: IPRATROPIUM 0.5MG/ALBUTEROL 2.5MG INH SOL UD 3ML (DUONEB) NEB PRN ×2 (11:40→19:35)
[2022-09-01] MEDS ORDERED: ACETAMINOPHEN TAB 650MG DOSE (2X325MG) PO PRN (11:40)
[2022-09-01] MEDS: ENOXAPARIN 40MG/0.4ML SYRINGE (J1650 PER 10MG) SC SCH (12:27)
[2022-09-01] MEDS: AZITHROMYCIN 250MG TABLET PO SCH (12:27)
[2022-09-01] MEDS: IPRATROPIUM 0.5MG/ALBUTEROL 2.5MG INH SOL UD 3ML (DUONEB) NEB SCH ×2 (13:09→20:30)
[2022-09-01 14:00] VITALS: BP 126/70
[2022-09-01] MEDS: guaiFENesin 200 MG TAB PO SCH ×2 (14:54→21:03)
[2022-09-01] MEDS ORDERED: NICOTINE 14 MG/24 HR TRANSDERMAL TD SCH (16:00)
[2022-09-01] MEDS: methylPREDNISolone 40MG 1ML VIAL IV SCH (18:14)
[2022-09-01 19:58] VITALS: BP 121/70
[2022-09-02] MEDS: IPRATROPIUM 0.5MG/ALBUTEROL 2.5MG INH SOL UD 3ML (DUONEB) NEB SCH ×3 (02:13→13:11)
[2022-09-02 05:43] VITALS: BP 119/69
[2022-09-02] MEDS: guaiFENesin 200 MG TAB PO SCH ×2 (05:51→14:09)
[2022-09-02] MEDS: methylPREDNISolone 40MG 1ML VIAL IV SCH (05:51)
[2022-09-02 06:55] LABS: HEMOGLOBIN 15.7 g/dl (13.5-17.5); MEAN CORPUSCULAR HEMOGLOBIN 30.7 pg (27.0-33.0); MEAN CORPUSCULAR HGB CONC 34.1 g/dl (32.0-36.5); PLATELET COUNT, AUTOMATED 248 10^3/uL (150-450); RED BLOOD COUNT 5.11 10^6/uL (4.30-6.10); WHITE BLOOD COUNT 14.8 10^3/uL (4.0-10.0)
[2022-09-02 07:22] LABS: ALBUMIN 4.1 G/DL (3.2-5.2); ALT/SGPT 27 U/L (7.0-40); BILIRUBIN,TOTAL 1.2 MG/DL (0.3-1.2); BLOOD UREA NITROGEN 14 MG/DL (9-23); CALCIUM LEVEL 9.2 MG/DL (8.5-10.1); CARBON DIOXIDE LEVEL 24 MMOL/L (20-31); CHLORIDE LEVEL 105 MMOL/L (98-107); CREATININE FOR GFR 0.58 MG/DL (0.70-1.30); GLOMERULAR FILTRATION RATE > 60.0 (>60); GLUCOSE, FASTING 113 MG/DL (60-100); MAGNESIUM LEVEL 2.1 MG/DL (1.8-2.4); POTASSIUM SERUM 4.5 MMOL/L (3.5-5.1); SODIUM LEVEL 138 MMOL/L (136-145); TOTAL PROTEIN 7.1 G/DL (5.7-8.2)
[2022-09-02] MEDS: ENOXAPARIN 40MG/0.4ML SYRINGE (J1650 PER 10MG) SC SCH (09:00)
[2022-09-02] MEDS: AZITHROMYCIN 250MG TABLET PO SCH (09:24)
[2022-09-02 11:24] VITALS: BP 138/76
[2022-09-02] MEDS ORDERED: AZIT-12 PO (13:00)
[2022-09-02] MEDS ORDERED: VENTAER INH (13:00)
[2022-09-02] MEDS ORDERED: ALBU2.5V10 INH (13:00)
[2022-09-02] MEDS ORDERED: PRED20TA PO (13:00)
== END 2022-09-02 15:35 | disposition home or self-care (01) ==
LOC: M ED 08:25 → M ED INP 11:39 → ENRESERV 13:21 → M MS5PR 13:45
PROVIDERS: ADMIT Family Medicine; ATTEND Family Medicine
DX: J45.901 Unspecified asthma with (acute) exacerbation (principal); F17.210 Nicotine dependence, cigarettes, uncomplicated; Z79.899 Other long term (current) drug therapy; Z79.51 Long term (current) use of inhaled steroids; Z79.52 Long term (current) use of systemic steroids; Z88.2 Allergy status to sulfonamides
CPT/HCPCS: 36415; 36600; 71045; 80048; 80053; 80076; 82550; 82553; 82803; 83735; 84484; 85025; 85027; 85379; 87486; 87581; 87633; 87798; 93005; 93041; 94640; 94760; 96374; 96375; 96376; 99285; J2920; J2930; J3475

== ENCOUNTER 2023-12-28 20:39 | Inpatient (IN) | payer OTHER, SELFPAY ==
[~2023-12-28] VITALS: Ht 185.4 cm; Wt 96.4 kg
[~2023-12-28 20:39] MED LIST changes: +ALBU2.5V10 INH; +AZIT-12 PO; +BENA25CA4 PO; +VENTAER INH
[2023-12-28] MEDS: IPRATROPIUM 0.5MG/ALBUTEROL 2.5MG INH SOL UD 3ML (DUONEB) NEB PRN (22:00)
[2023-12-28] MEDS: NS 1,000 ML IV ONE (22:02)
[2023-12-28] MEDS: methylPREDNISolone 125MG 2ML VIAL IV ONE (22:02)
[2023-12-28 22:12] LABS: BASO % 0.4 % (0.0-1.0); EOS # 0.1 10^3/uL (0.0-0.5); EOS % 0.9 % (0.0-3.0); HEMATOCRIT 43.5 % (42.0-52.0); HEMOGLOBIN 14.9 g/dl (13.5-17.5); LYMPH # 0.5 10^3/uL (1.5-5.0); LYMPH % 7.7 % (24.0-44.0); MEAN CORPUSCULAR HEMOGLOBIN 31.2 pg (27.0-33.0); MEAN CORPUSCULAR HGB CONC 34.3 g/dl (32.0-36.5); MEAN CORPUSCULAR VOLUME 91.2 fl (80.0-96.0); MONO # 0.7 10^3/uL (0.0-0.8); MONO % 10.6 % (2.0-8.0); NEUTROPHILS # 5.6 10^3/uL (1.5-8.5); NEUTROPHILS % 79.8 % (36.0-66.0); PLATELET COUNT, AUTOMATED 188 10^3/uL (150-450); RED BLOOD COUNT 4.77 10^6/uL (4.30-6.10)
[2023-12-28 22:37] LABS: ALBUMIN 3.9 G/DL (3.2-5.2); ALKALINE PHOSPHATASE 77 U/L (46-116); ALT/SGPT 25 U/L (7.0-40); AST/SGOT 14 U/L (<34); BILIRUBIN,DIRECT 0.5 MG/DL (<0.4); BILIRUBIN,TOTAL 1.3 MG/DL (0.3-1.2); BLOOD UREA NITROGEN 11 MG/DL (9-23); CALCIUM LEVEL 8.9 MG/DL (8.5-10.1); CARBON DIOXIDE LEVEL 27 MMOL/L (20-31); CHLORIDE LEVEL 105 MMOL/L (98-107); GLOMERULAR FILTRATION RATE > 60.0 (>60); GLUCOSE, FASTING 86 MG/DL (60-100); POTASSIUM SERUM 4.1 MMOL/L (3.5-5.1); SODIUM LEVEL 138 MMOL/L (136-145); TOTAL PROTEIN 6.8 G/DL (5.7-8.2)
[2023-12-29] VITALS (10 sets, daily range): BP systolic 120–130; BP diastolic 57–75; TEMP 97.3–100; O2SAT 91–96
[2023-12-29] MEDS: ALBUTEROL SULFATE 2.5MG/0.5ML INH NEB SOLN NEB ONE (00:13)
[2023-12-29] MEDS: OSELTAMIVIR PHOSPHATE 75 MG CAP (TAMIFLU) PO ONE (01:53)
[2023-12-29] MEDS: MAG SULF 1GM/100ML (MAG RUN) 1 GM in IV 1 EA IV SCH ×2 (01:53→06:54)
[2023-12-29] MEDS: NS 1,000 ML IV SCH ×2 (01:54→01:55)
[2023-12-29] MEDS ORDERED: ACETAMINOPHEN TAB 650MG DOSE (2X325MG) PO PRN (01:55)
[2023-12-29] MEDS ORDERED: HOME MED LIST COMPLETE! XX SCH (02:10)
[2023-12-29] MEDS: IPRATROPIUM 0.5MG/ALBUTEROL 2.5MG INH SOL UD 3ML (DUONEB) NEB SCH ×2 (02:18→10:10)
[2023-12-29] MEDS: methylPREDNISolone 40MG 1ML VIAL IV SCH (05:36)
[2023-12-29] MEDS: ALBUTEROL SULFATE 2.5MG/0.5ML INH NEB SOLN NEB PRN (05:50)
[2023-12-29 06:52] LABS: BLOOD UREA NITROGEN 9 MG/DL (9-23); CALCIUM LEVEL 8.7 MG/DL (8.5-10.1); CARBON DIOXIDE LEVEL 23 MMOL/L (20-31); CHLORIDE LEVEL 108 MMOL/L (98-107); CREATININE FOR GFR 0.59 MG/DL (0.70-1.30); GLOMERULAR FILTRATION RATE > 60.0 (>60); GLUCOSE, FASTING 129 MG/DL (60-100); POTASSIUM SERUM 4.1 MMOL/L (3.5-5.1); SODIUM LEVEL 138 MMOL/L (136-145)
[2023-12-29] MEDS ORDERED: IPRATROPIUM 0.5MG/ALBUTEROL 2.5MG INH SOL UD 3ML (DUONEB) NEB PRN (07:25)
[2023-12-29 07:45] LABS: ABG BASE EXCESS -3.6 (-2.0-2.0); ABG HCO3 21.5 MMOL/L (22.0-26.0); ABG O2 SATURATION 68.4 % (95.0-99.0); ABG PARTIAL PRESSURE CO2 39.5 mmHg (35.0-45.0); ABG STANDARD HCO3 20.7 MMOL/L. (22.0-26.0); ABG TOTAL CO2 22.7 MMOL/L (22.0-29.0); ABG pH (ARTERIAL) 7.354 UNITS (7.350-7.450)
[2023-12-29 07:48] LABS: ABG PARTIAL PRESSURE O2 35.2 mmHg (75.0-100.0)
[2023-12-29] MEDS: NICOTINE 7 MG/24 HR TRANSDERMAL TD SCH (10:07)
[2023-12-29] MEDS: OSELTAMIVIR PHOSPHATE 75 MG CAP (TAMIFLU) PO SCH (10:07)
[2023-12-29] MEDS: methylPREDNISolone 40MG 1ML VIAL IV ONE (10:21)
[2023-12-29 12:56] LABS: ABG BASE EXCESS -3.6 (-2.0-2.0); ABG HCO3 18.9 MMOL/L (22.0-26.0); ABG O2 SATURATION 93.8 % (95.0-99.0); ABG PARTIAL PRESSURE CO2 28.4 mmHg (35.0-45.0); ABG PARTIAL PRESSURE O2 67.1 mmHg (75.0-100.0); ABG STANDARD HCO3 21.4 MMOL/L. (22.0-26.0); ABG TOTAL CO2 19.8 MMOL/L (22.0-29.0); ABG pH (ARTERIAL) 7.442 UNITS (7.350-7.450)
[2023-12-29] MEDS: BUDESONIDE 0.5 MG/2 ML INHALATION SUSPENSION NEB SCH (13:50)
[2023-12-29] MEDS ORDERED: ISOVUE-370 76% 100ML VIAL As Ordered ONE (13:57)
[2023-12-29] MEDS: AZITHROMYCIN INJ 500 MG, VIAL MATE ADAPTER 1 EACH in NS 250 ML IV SCH (14:55)
[2023-12-29] MEDS: IPRATROPIUM 0.02% SOLN 0.5MG 2.5ML NEB INH SCH (19:46)
[2023-12-30] VITALS (8 sets, daily range): BP systolic 120–134; BP diastolic 57–82; TEMP 97.8–98.9; O2SAT 91–97
[2023-12-30] MEDS: LEVALBUTEROL 1.25MG 0.5ML CONCENTRATE NEB INH PRN (04:47)
[2023-12-30 05:46] LABS: BASO % 0.1 % (0.0-1.0); EOS % 0.1 % (0.0-3.0); HEMATOCRIT 41.2 % (42.0-52.0); LYMPH # 1.1 10^3/uL (1.5-5.0); LYMPH % 13.4 % (24.0-44.0); MEAN CORPUSCULAR HEMOGLOBIN 31.2 pg (27.0-33.0); MEAN CORPUSCULAR VOLUME 91.8 fl (80.0-96.0); MONO % 12.3 % (2.0-8.0); NEUTROPHILS # 5.8 10^3/uL (1.5-8.5); NEUTROPHILS % 73.7 % (36.0-66.0); PLATELET COUNT, AUTOMATED 182 10^3/uL (150-450); RED BLOOD COUNT 4.49 10^6/uL (4.30-6.10); WHITE BLOOD COUNT 7.9 10^3/uL (4.0-10.0)
[2023-12-30 06:57] LABS: BLOOD UREA NITROGEN 14 MG/DL (9-23); CALCIUM LEVEL 8.3 MG/DL (8.5-10.1); CARBON DIOXIDE LEVEL 26 MMOL/L (20-31); CHLORIDE LEVEL 110 MMOL/L (98-107); CREATININE FOR GFR 0.64 MG/DL (0.70-1.30); GLOMERULAR FILTRATION RATE > 60.0 (>60); GLUCOSE, FASTING 95 MG/DL (60-100); POTASSIUM SERUM 4.3 MMOL/L (3.5-5.1); SODIUM LEVEL 140 MMOL/L (136-145)
[2023-12-30] MEDS: IPRATROPIUM 0.5MG/ALBUTEROL 2.5MG INH SOL UD 3ML (DUONEB) NEB SCH (13:11)
[2023-12-30] MEDS: AZITHROMYCIN 250MG TABLET PO SCH (16:05)
[2023-12-31] MEDS: diphenhydrAMINE 25MG CAP PO STA (00:26)
[2023-12-31] MEDS: RAMELTEON 8 MG TAB (ROZEREM) PO STA (00:26)
[2023-12-31 04:01] VITALS: BP 131/77; TEMP 98.6; O2SAT 94
[2023-12-31 05:35] LABS: BASO % 0.1 % (0.0-1.0); HEMATOCRIT 42.9 % (42.0-52.0); HEMOGLOBIN 14.4 g/dl (13.5-17.5); LYMPH # 1.1 10^3/uL (1.5-5.0); LYMPH % 10.3 % (24.0-44.0); MEAN CORPUSCULAR HEMOGLOBIN 30.8 pg (27.0-33.0); MEAN CORPUSCULAR HGB CONC 33.6 g/dl (32.0-36.5); MEAN CORPUSCULAR VOLUME 91.9 fl (80.0-96.0); MONO # 0.7 10^3/uL (0.0-0.8); MONO % 6.5 % (2.0-8.0); NEUTROPHILS # 8.5 10^3/uL (1.5-8.5); NEUTROPHILS % 82.9 % (36.0-66.0); PLATELET COUNT, AUTOMATED 186 10^3/uL (150-450); RED BLOOD COUNT 4.67 10^6/uL (4.30-6.10); WHITE BLOOD COUNT 10.3 10^3/uL (4.0-10.0)
[2023-12-31 05:59] LABS: BLOOD UREA NITROGEN 15 MG/DL (9-23); CALCIUM LEVEL 8.9 MG/DL (8.5-10.1); CARBON DIOXIDE LEVEL 24 MMOL/L (20-31); CHLORIDE LEVEL 110 MMOL/L (98-107); CREATININE FOR GFR 0.59 MG/DL (0.70-1.30); GLOMERULAR FILTRATION RATE > 60.0 (>60); GLUCOSE, FASTING 108 MG/DL (60-100); POTASSIUM SERUM 4.5 MMOL/L (3.5-5.1); SODIUM LEVEL 139 MMOL/L (136-145)
[2023-12-31 07:37] VITALS: BP 139/76; TEMP 97.9; O2SAT 93
[2023-12-31] MEDS ORDERED: OSEL75CA2 PO (10:34)
[2023-12-31] MEDS ORDERED: AZIT-12 PO (10:34)
[2023-12-31] MEDS ORDERED: SYMB80INH INH (10:34)
[2023-12-31] MEDS ORDERED: BUPR-71 PO (10:34)
[2023-12-31] MEDS ORDERED: PRED10TA2 PO (10:34)
== END 2023-12-31 12:02 | disposition home or self-care (01) | DRG 133 ==
LOC: M ED 20:39 → M ED INP 12-29 01:55 → ENRESERV 12-29 02:19 → CANRESERV 12-29 02:19 → ENRESERV 12-29 02:21 → M MSPAV 12-29 02:50 → M PCU 12-29 10:45 → OBSVTOIN 12-30 13:34
PROVIDERS: ADMIT Internal Medicine; ATTEND Internal Medicine
DX: J96.01 Acute respiratory failure with hypoxia (principal); J45.901 Unspecified asthma with (acute) exacerbation; J10.1 Influenza due to other identified influenza virus with other respiratory manifestations; F17.210 Nicotine dependence, cigarettes, uncomplicated; F41.9 Anxiety disorder, unspecified; Z88.2 Allergy status to sulfonamides; Z79.899 Other long term (current) drug therapy